=== PATIENT | male | born 1990 | race Caucasian/White ===

== ENCOUNTER 2017-09-22 19:21 | Emergency (ER) | payer OTHER ==
[~2017-09-22] VITALS: Ht 180.3 cm; Wt 95.2 kg
[~2017-09-22 19:21] MED LIST: CLOBET30L TOP; Naprosyn500 MG PO; Prednisone20 MG PO; TRIA80TC TOP; Wellbutrin Sr200 MG PO
[2017-09-22] MEDS ORDERED: Percocet 5-3251 EACH PO (20:55)
== END 2017-09-22 21:21 | disposition home or self-care (01) ==
LOC: ER 19:21
DX: S49.91XA Unspecified injury of right shoulder and upper arm, initial encounter (principal); Z79.52 Long term (current) use of systemic steroids; Z79.899 Other long term (current) drug therapy; W01.0XXA Fall on same level from slipping, tripping and stumbling without subsequent striking against object, initial encounter
CPT/HCPCS: 73030; 99283